=== PATIENT | female | born 1990 | race Asian ===

== ENCOUNTER 2022-08-21 11:52 | Inpatient (IN) ==
[2022-08-21] MEDS ORDERED: OXYTOCIN 30 UNITS/500 ML BAG IV PRN ×2 (16:37→21:54)
[2022-08-21] MEDS ORDERED: LIDOCAINE 1% LOCAL 20 ML VIAL INFIL PRN (16:37)
[2022-08-21] MEDS: LACTATED RINGER'S 1,000 ML IV PRN ×3 (17:05→22:18)
[2022-08-21 17:10] LABS: Hematocrit (blood only) 34.7 % (34.1-44.9); Hemoglobin 12.5 g/dl (12.0-16.0); Mean Corpuscular Hemoglobin 33.7 pg (25.0-34.0); Mean Corpuscular Volume 93.5 fL (80.0-100.0); Mean Platelet Volume 11.2 fL (9.4-12.3); Platelet Count 233 K/uL (130-400); RDW Coefficient of Variation 13.4 % (11.5-14.5); RDW Standard Deviation 45.4 fL (36.4-46.3); Red Blood Count 3.71 M/uL (3.93-5.22)
[2022-08-21] MEDS ORDERED: ePHEDrine sulfate 50 MG/ML AMP ONE (17:25)
[2022-08-21] MEDS ORDERED: fentaNYL citrate 100 MCG/2 ML VIAL ONE (17:26)
[2022-08-21] MEDS ORDERED: fentaNYL 2MCG/ML ROPIVACAINE 1.25MG/ML 100 ML BAG EPI ONE (17:27)
[2022-08-21] MEDS ORDERED: LIDOCAINE 2%/EPINEPHRINE 1:200,000 20 ML SDV ONE (17:27)
[2022-08-21] MEDS ORDERED: BUPIVACAINE 0.25% 30 ML VIAL ONE (17:27)
[2022-08-21] MEDS ORDERED: SODIUM CHLORIDE 0.9% INJ 10 ML VIAL ONE (17:27)
--- NOTE | 2022-08-21 19:15 | Anesthesiology Consultation ---
Date of Service August 21, 2022 Assessment & Plan Chart Review Chart Review: Acceptable Risk for Labor Epidural Consults Requested none History Height/Weight Height: 5 ft 2 in Weight: 65.771 kg Allergies Allergy/AdvReac Type Severity Reaction Status Date / Time No Known Allergies Allergy Verified 08/21/22 13:41 Medications Home Medications Medication Instructions Recorded Confirmed Last Taken prenat.vits,ollie,[id number] 1 tab PO DAILY #60 tabs 07/27/22 08/21/22 08/20/22 07:00 Active Medications Generic Name Dose Route Start Last Admin Trade Name Freq PRN Reason Stop Dose Admin Lactated Ringer's 1,000 mls @ 125 mls/hr 08/21/22 16:37 08/21/22 18:25 Lr IV 08/23/22 16:36 125 mls/hr .Q8H PRN Infusion L&D Protocol Protocol Past Medical History Medical History (Updated 08/21/22 @ 13:41 by Luciana Lewis RN) No known health problems Past Family History Family History Father Diabetes Past Surgical History Surgical History (Updated 08/21/22 @ 13:41 by Luciana Lewis RN) No history of previous surgery Social History Smoking Status: Never smoker Hx Alcohol Use: No Hx Substance Use: No substance use type: does not use Physical Exam Vital Signs Last Vital Signs Temp 36.8 C 08/21/22 15:45 Pulse 88 08/21/22 19:12 Resp 18 08/21/22 15:45 BP 103/69 08/21/22 19:12 Pulse Ox 97 08/21/22 19:08 Testing Laboratory Results 08/21/22 16:56
[2022-08-21] MEDS ORDERED: ONDANSETRON INJ 2 MG/ML 2 ML VIAL IV PRN (19:16)
[2022-08-21] MEDS ORDERED: ePHEDrine sulfate 50 MG/ML AMP IV PRN (19:16)
[2022-08-21] MEDS ORDERED: diphenhydrAMINE 50 MG/ML VIAL IV PRN (19:16)
[2022-08-21] MEDS ORDERED: PROMETHAZINE HCL 25 MG in SODIUM CHLORIDE 0.9% 50 ML IV PRN (19:16)
[2022-08-21] MEDS ORDERED: NALOXONE HCL 0.4 MG/1 ML VIAL/CARP IV PRN (19:16)
[2022-08-21] MEDS ORDERED: NALOXONE HCL 1 MG in SODIUM CHLORIDE 0.9% 1000ML 1,000 ML IV PRN (19:16)
[2022-08-21] MEDS ORDERED: NALBUPHINE HCL INJ 10 MG/ML AMP IV PRN (19:16)
[2022-08-22] MEDS: fentaNYL 2MCG/ML ROPIVACAINE 1.25MG/ML 100 ML BAG EPI PRN ×2 (03:01→10:33)
[2022-08-22] MEDS: LACTATED RINGER'S 1,000 ML IV PRN (04:55)
--- NOTE | 2022-08-22 08:09 | History & Physical Report ---
Date of Service August 22, 2022 Assessment & Plan (1) Supervision of normal intrauterine in primigravida: Plan: Admitted for labor requested epidural artificial rupture of membranes uncomplicated Pitocin required for augmentation patient is now fully dilated and will push shortly Admission and Anticipated Discharge Date Admission Date: August 21, 2022 History of Present Illness Primary Care Provider: NO PCP Visit JEREMY Calculator Estimated Delivery Date Method Current WG Current Estimate 08/21/22 LMP (Certain) 39w 2d LMP: 11/14/21 : 1 Full term: 0 Premature: 0 Total Number of Induced Abortions: 0 Total Number of Spontaneous Abortions: 0 Ectopics: 0 Multiple births: 0 Number of Living Children: 0 and Delivery Plans 33wk transfer from [place] Flu shot given 07/13/22 - [place] Allergies Allergy/AdvReac Type Severity Reaction Status Date / Time No Known Allergies Allergy Verified 08/21/22 13:41 Home Medications Medication Instructions Recorded Confirmed Type prenat.vits,ollie,kzp-pcbb-wqvpf 1 tab PO DAILY #60 tabs 07/27/22 08/21/22 Rx Patient History Medical History (Updated 08/21/22 @ 13:41 by Luciana Lewis RN) No known health problems Surgical History (Updated 08/21/22 @ 13:41 by Luciana Lewis RN) No history of previous surgery Family History Father Diabetes Social History Smoking Status: Never smoker Hx Alcohol Use: No Hx Substance Use: No Preferred Language: Mandarin Turkmen Communication Ability: Effective Communication Tools: [employer] Technician Required: Yes Beliefs That Will Affect Care: None marital status: marital status details: Luigi Louis (31) [phone] Current Living Situation: Spouse Current Living Situation Comment: lives with spouse, current occupational status: unemployed Other Information That Helps Us Care for You: No Feels Safe at Home: Yes Safety Concerns: Feels Safe At This Time Assistive Devices: Glasses Physical Exam Constitutional: WD/WN, vitals as above well developed and well nourished Respiratory: normal respiratory effort; no respiratory distress, no retractions and does not use accessory muscles Cardiovascular: RRR, no murmur, no edema Chest (Breasts): normal inspection/palpation of breasts Breast: normal inspection of breasts, normal inspection of axillae, normal palpation of breasts and normal palpation of axillae Gastrointestinal (Abdomen): normal bowel sounds, soft, nontender, no hepatosplenomegaly Neurologic: awake; not confused Results & Data ([facility]) Vital Signs (Past 12 Hours) Vital Signs Temp Pulse Resp BP Pulse Ox 08/22/22 07:21 99.9 F H 18 08/22/22 08:03 102 H 96 08/22/22 07:58 97 H 98 08/22/22 07:55 88 88/53 L 08/22/22 07:53 96 H 98 08/22/22 07:48 87 100 08/22/22 07:43 89 98 08/22/22 07:40 92 H 96/55 L 08/22/22 07:38 91 H 98 08/22/22 07:33 99 H 98 08/22/22 07:28 91 H 96 08/22/22 07:25 86 98/57 L 08/22/22 07:23 87 97 08/22/22 07:18 100 H 98 08/22/22 07:13 86 98 08/22/22 07:10 96 H 106/62 08/22/22 07:08 90 98 08/22/22 07:03 98 H 98 08/22/22 06:58 86 97 08/22/22 06:55 91 H 98/55 L 08/22/22 06:53 102 H 96 08/22/22 06:48 93 H 97 08/22/22 06:43 87 97 08/22/22 06:40 78 97/53 L 08/22/22 06:38 81 96 08/22/22 06:33 91 H 97 08/22/22 06:28 99 H 98 08/22/22 06:25 86 100/60 08/22/22 06:23 95 H 97 08/22/22 06:18 97 H 98 08/22/22 06:13 84 97 08/22/22 06:10 86 95/56 L 08/22/22 06:08 94 H 98 08/22/22 06:03 103 H 98 08/22/22 05:58 102 H 99 08/22/22 05:55 91 H 105/58 L 08/22/22 05:54 18 08/22/22 05:54 98.8 F 18 08/22/22 05:53 97 H 98 08/22/22 05:48 96 H 98 08/22/22 05:43 106 H 98 08/22/22 05:40 86 108/65 08/22/22 05:38 105 H 98 08/22/22 05:33 83 98 08/22/22 05:28 82 97 08/22/22 05:25 76 97/57 L 08/22/22 05:23 75 98 08/22/22 05:18 81 97 08/22/22 05:13 82 97 08/22/22 05:10 89 108/64 08/22/22 05:08 85 97 08/22/22 05:03 87 97 08/22/22 04:58 84 97 08/22/22 04:55 93 H 105/63 08/22/22 04:53 88 97 08/22/22 04:48 88 97 08/22/22 04:43 87 97 08/22/22 04:40 94 H 99/61 L 08/22/22 04:38 95 H 97 08/22/22 04:33 92 H 97 08/22/22 04:28 97 H 97 08/22/22 04:25 90 94/58 L 08/22/22 04:23 91 H 97 08/22/22 04:18 103 H 98 08/22/22 04:13 95 H 99 08/22/22 04:10 100 H 89/59 L 08/22/22 04:08 98 H 97 08/22/22 04:03 107 H 98 08/22/22 03:58 141 H 97 08/22/22 03:55 129 H 97/64 L 08/22/22 03:53 101 H 97 08/22/22 03:52 18 08/22/22 03:52 99.9 F H 18 08/22/22 03:48 106 H 96 08/22/22 03:43 98 H 97 08/22/22 03:41 110 H 102/53 L 08/22/22 03:38 103 H 96 08/22/22 03:33 108 H 97 08/22/22 03:28 102 H 97 08/22/22 03:25 96 H 103/61 08/22/22 03:23 115 H 97 08/22/22 03:18 95 H 96 08/22/22 03:13 91 H 98 08/22/22 03:11 108 H 102/67 08/22/22 03:08 100 H 98 08/22/22 03:03 99 H 97 08/22/22 02:58 95 H 97 08/22/22 02:55 115 H 105/68 08/22/22 02:53 98 H 98 08/22/22 02:48 96 H 97 08/22/22 02:43 97 H 99 08/22/22 02:40 95 H 118/70 08/22/22 02:38 100 H 99 08/22/22 02:33 109 H 98 08/22/22 02:28 100 H 98 08/22/22 02:25 91 H 117/67 08/22/22 02:23 118 H 99 08/22/22 02:18 108 H 99 08/22/22 02:13 100 H 98 08/22/22 02:10 112 H 105/69 08/22/22 02:08 101 H 98 08/22/22 02:04 18 08/22/22 02:04 98.2 F 18 08/22/22 02:03 119 H 99 08/22/22 01:58 107 H 99 08/22/22 01:55 83 102/62 08/22/22 01:53 92 H 98 08/22/22 01:48 84 97 08/22/22 01:43 95 H 97 08/22/22 01:40 92 H 91/54 L 08/22/22 01:38 89 97 08/22/22 01:33 89 96 08/22/22 01:28 93 H 97 08/22/22 01:25 86 90/56 L 08/22/22 01:23 89 97 08/22/22 01:18 89 98 08/22/22 01:13 102 H 97 08/22/22 01:11 82 88/54 L 08/22/22 01:08 89 97 08/22/22 01:03 92 H 98 08/22/22 00:58 85 98 08/22/22 00:56 83 106/59 L 08/22/22 00:53 99 H 98 08/22/22 00:48 85 98 08/22/22 00:43 84 98 08/22/22 00:41 84 105/62 08/22/22 00:38 108 H 98 08/22/22 00:33 87 97 08/22/22 00:28 97 H 98 08/22/22 00:26 80 102/61 08/22/22 00:23 96 H 98 08/22/22 00:18 110 H 98 08/22/22 00:13 98 H 98 08/22/22 00:11 82 102/62 08/22/22 00:08 89 98 08/22/22 00:03 97 H 97 08/22/22 00:01 18 08/22/22 00:01 98.2 F 18 08/21/22 23:58 78 97 08/21/22 23:55 95 H 97/60 L 08/21/22 23:53 79 97 08/21/22 23:48 86 97 08/21/22 23:43 76 98 08/21/22 23:40 88 105/60 08/21/22 23:38 99 H 98 08/21/22 23:33 80 97 08/21/22 23:28 85 98 08/21/22 23:26 85 113/69 08/21/22 23:23 89 96 08/21/22 23:18 100 H 98 08/21/22 23:13 84 97 08/21/22 23:11 75 102/61 08/21/22 23:08 92 H 98 08/21/22 23:03 98 H 98 08/21/22 22:58 85 100 08/21/22 22:56 82 100/62 08/21/22 22:53 91 H 98 08/21/22 22:48 75 98 08/21/22 22:43 79 97 17 22:15 18 08/21/22 22:15 99.0 F 18 08/21/22 22:40 72 94/54 L 17 22:38 79 97 17 22:33 77 98 08/21/22 22:28 77 96 08/21/22 22:26 94 H 100/61 08/21/22 22:23 88 97 17 22:18 110 H 99 17 22:13 93 H 99 08/21/22 22:10 100 H 83/53 L 08/21/22 22:08 87 97 08/21/22 22:03 102 H 98 08/21/22 21:58 82 98 08/21/22 21:53 95 H 99 08/21/22 21:48 102 H 99 08/21/22 21:43 91 H 98 08/21/22 21:40 84 95/51 L 08/21/22 21:38 112 H 99 08/21/22 21:33 99 H 99 08/21/22 21:28 91 H 98 08/21/22 21:25 115 H 89/53 L 08/21/22 21:23 97 H 98 08/21/22 21:18 87 98 08/21/22 21:13 100 H 98 08/21/22 21:10 117 H 88/54 L 08/21/22 21:08 107 H 99 08/21/22 21:03 110 H 97 08/21/22 20:58 85 100 08/21/22 20:55 95 H 91/53 L 08/21/22 20:53 117 H 99 08/21/22 20:48 113 H 99 08/21/22 20:43 87 99 08/21/22 20:40 108 H 86/54 L 08/21/22 20:38 92 H 99 08/21/22 20:33 85 99 08/21/22 20:28 88 100 08/21/22 20:26 115 H 94/47 L 08/21/22 20:23 96 H 98 08/21/22 20:18 125 H 99 08/21/22 20:13 103 H 97 08/21/22 20:11 116 H 105/51 L Code Status & VTE Plan VTE Prophylaxis Plan VTE Prophylaxis will be ordered: No Reason for no VTE drug order: Treatment not indicated Coding Level of Care Code None Diagnoses Supervision of normal intrauterine in primigravida Z34.00
--- NOTE | 2022-08-22 12:34 | Delivery Summary ---
Vaginal Delivery Summary Date of Service August 22, 2022 Vaginal Delivery Summary Spontaneous vaginal delivery the patient arrived in active labor received an epidural then artificial rupture of membranes and Pitocin for augmentation she delivered a baby after pushing for 3 hours in occiput anterior position fluid had thin meconium there was no nuchal cord mouth and nares were suctioned with bulb after delivery of the head and then gentle traction on the baby no excessive force live vigorous female cord clamped and cut cord blood obtained placenta removed with gentle traction IV Pitocin started uterine tone improved hemostasis improved second-degree tear repaired with 3-0 Vicryl sponge and instrument counts correct estimated blood loss 300 mL
[2022-08-22] MEDS ORDERED: HYDROCORTISONE ACETATE 25 MG SUPP PR PRN (12:39)
[2022-08-22] MEDS ORDERED: BENZOCAINE 20% AER SPR 82.5 GM CAN EXT PRN (12:39)
[2022-08-22] MEDS ORDERED: DIPHTHERIA/TETANUS/PERTUSSIS 0.5 ML SYR/VIAL IM ONE (12:39)
[2022-08-22] MEDS ORDERED: bisacodyL 10 MG SUPP PR PRN (12:39)
[2022-08-22] MEDS ORDERED: ACETAMINOPHEN 325 MG TAB PO PRN (12:39)
[2022-08-22] MEDS ORDERED: oxyCODONE/ACETAMINOPHEN 5mg/325mg TAB PO PRN (12:39)
--- NOTE | 2022-08-22 12:54 | Anesthesia Procedure Note ---
Date of Service August 22, 2022 Anesthesia Post Epidural Note Vital Signs Vital Signs: Temp Pulse Resp BP Pulse Ox 38.1 C H 118 H 18 99/55 L 97 08/22/22 12:00 08/22/22 12:40 08/22/22 07:21 08/22/22 12:40 08/22/22 12:21 Pain Intensity Abdomen: Pain Intensity: 3 Notes Pain: adequately controlled Airway Patency, RR, SpO2: stable & adequate BP & HR: stable & adequate Hydration State: stable & adequate Anesthetic Complications: no major complications apparent Epidural: Removed without complications, With tip intact and See Notes
[2022-08-22] MEDS: IBUPROFEN 600 MG TAB PO PRN (13:17)
[2022-08-22] MEDS: OXYTOCIN 30 UNITS/500 ML BAG IV PRN ×2 (15:19→16:15)
[2022-08-22] MEDS ORDERED: miSOPROStoL 200 MCG TAB PR SCH (15:39)
--- NOTE | 2022-08-22 15:43 | Obstetrical Progress Note ---
Date of Service August 22, 2022 Assessment & Plan Admission and Anticipated Discharge Date Admission Date: August 21, 2022 Subjective Asked to assess by nursing for heavier bleeding patient delivered around 12:17 PM she was doing fine and several hours later she had an increase in bleeding and then felt lightheaded and her blood pressure was low resuscitative measures were taken including starting IV Pitocin and a bolus IV fluid bolus and uterine massage I was at home and presented within 5 minutes and assessed the patient there was a slight trickle running the uterus feels firm I attempted to do a pelvic exam however the patient had had her epidural removed and from a pain point of view could not tolerate this 800 mcg of Cytotec was inserted into her rectum note noticed we used the chemical strength tester to to explain her process anesthesia is called we will get her more comfortable and then do an exam under anesthesia to see if there is anything causing the bleeding aside from uterine atony I if there is a laceration. Results & Data ([facility]) Vital Signs (Past 12 Hours) Vital Signs Temp Pulse Resp BP Pulse Ox 08/22/22 14:05 98.4 F 16 08/22/22 07:21 99.9 F H 18 08/22/22 15:41 101 H 99/59 L 08/22/22 15:36 96 H 106/65 08/22/22 15:32 87 98/59 L 08/22/22 15:31 84 91/53 L 08/22/22 15:29 87 94/51 L 08/22/22 15:20 121 H 76/55 L 08/22/22 15:15 110 H 71/48 L 08/22/22 15:10 116 H 70/39 L 08/22/22 15:00 129 H 90/49 L 08/22/22 14:55 130 H 78/50 L 08/22/22 14:53 131 H 83/52 L 08/22/22 14:25 126 H 93/54 L 08/22/22 13:56 131 H 68/44 L 08/22/22 13:25 125 H 70/47 L 08/22/22 13:10 129 H 63/39 L 08/22/22 12:55 146 H 84/51 L 08/22/22 12:40 118 H 99/55 L 08/22/22 12:25 139 H 112/52 L 08/22/22 12:21 137 H 97 12/18/22 12:19 108 H 121/61 08/22/22 12:16 105 H 96 08/22/22 12:17 106 H 92 08/22/22 12:11 86 L 08/22/22 12:11 108 H 08/22/22 12:11 111 H 90 08/22/22 12:06 98 H 97 08/22/22 12:05 102 H 83 L 08/22/22 12:00 100.6 F H 89 83 L 08/22/22 11:55 103 H 105/57 L 94 08/22/22 11:49 116 H 98 08/22/22 11:47 102 H 84 L 08/22/22 11:44 106 H 96 08/22/22 11:40 90 08/22/22 11:40 102 H 08/22/22 11:39 107 H 96 08/22/22 11:40 108 H 113/59 L 08/22/22 11:34 111 H 98 08/22/22 11:29 99 H 97 08/22/22 11:28 110 H 86 L 08/22/22 11:24 103 H 97 08/22/22 11:23 113 H 93 08/22/22 11:19 106 H 97 08/22/22 11:16 107 H 90 08/22/22 11:14 102 H 97 08/22/22 11:11 92 08/22/22 11:11 112 H 08/22/22 11:11 98 H 105/64 08/22/22 11:09 114 H 78 L 08/22/22 11:07 100.8 F H 08/22/22 11:04 191 H 89 L 08/22/22 10:59 103 H 77 L 08/22/22 10:54 116 H 98 08/22/22 10:49 105 H 99 08/22/22 10:46 113 H 89 L 08/22/22 10:44 130 H 100 08/22/22 10:39 112 H 98 08/22/22 10:34 98 08/22/22 10:34 114 H 08/22/22 10:34 93 H 92 08/22/22 10:29 93 H 99 08/22/22 10:28 92 H 89 L 08/22/22 10:24 84 98 08/22/22 10:23 93 H 88 L 08/22/22 10:19 103 H 98 1822 10:18 98 H 88 L 08/22/22 10:14 108 H 94 18 10:13 91 H 91 08/22/22 10:11 120 H 164/62 H 08/22/22 10:09 106 H 99 18 10:08 107 H 94 18 10:04 118 H 97 08/22/22 10:01 91 H 92 08/22/22 09:59 107 H 97 08/22/22 09:55 95 H 92 08/22/22 09:54 103 H 99 08/22/22 09:49 106 H 96 08/22/22 09:44 134 H 97 08/22/22 09:41 136 H 141/59 H 08/22/22 09:39 91 H 98 08/22/22 09:33 87 97 08/22/22 09:34 87 85 L 08/22/22 09:28 95 H 98 08/22/22 09:27 93 H 91 08/22/22 09:23 112 H 97 08/22/22 09:21 94 H 90 08/22/22 09:18 101 H 97 18 09:13 89 88 L 08/22/22 09:10 99.5 F 103 H 105/56 L 08/22/22 09:08 94 H 99 08/22/22 09:03 82 98 08/22/22 08:58 83 96 18 08:56 91 H 114/63 08/22/22 08:53 82 98 1822 08:48 80 96 1822 08:43 78 96 1822 08:41 81 95/61 L 22 08:38 94 H 97 18/22 08:33 80 96 18/22 08:28 84 96 1218/22 08:26 75 95/60 L 18/22 08:23 77 97 18/22 08:18 84 97 1822 08:13 78 97 1822 08:10 85 97/57 L 18/22 08:08 83 97 1822 08:03 102 H 96 18 07:58 97 H 98 08/22/22 07:55 88 88/53 L 08/22/22 07:53 96 H 98 08/22/22 07:48 87 100 08/22/22 07:43 89 98 08/22/22 07:40 92 H 96/55 L 08/22/22 07:38 91 H 98 08/22/22 07:33 99 H 98 08/22/22 07:28 91 H 96 08/22/22 07:25 86 98/57 L 08/22/22 07:23 87 97 08/22/22 07:18 100 H 98 08/22/22 07:13 86 98 08/22/22 07:10 96 H 106/62 08/22/22 07:08 90 98 08/22/22 07:03 98 H 98 08/22/22 06:58 86 97 08/22/22 06:55 91 H 98/55 L 08/22/22 06:53 102 H 96 08/22/22 06:48 93 H 97 08/22/22 06:43 87 97 08/22/22 06:40 78 97/53 L 08/22/22 06:38 81 96 08/22/22 06:33 91 H 97 08/22/22 06:28 99 H 98 08/22/22 06:25 86 100/60 08/22/22 06:23 95 H 97 08/22/22 06:18 97 H 98 08/22/22 06:13 84 97 08/22/22 06:10 86 95/56 L 08/22/22 06:08 94 H 98 08/22/22 06:03 103 H 98 08/22/22 05:58 102 H 99 08/22/22 05:55 91 H 105/58 L 08/22/22 05:54 18 08/22/22 05:54 98.8 F 18 08/22/22 05:53 97 H 98 08/22/22 05:48 96 H 98 08/22/22 05:43 106 H 98 08/22/22 05:40 86 108/65 08/22/22 05:38 105 H 98 08/22/22 05:33 83 98 18 05:28 82 97 18 05:25 76 97/57 L 08/22/22 05:23 75 98 08/22/22 05:18 81 97 08/22/22 05:13 82 97 08/22/22 05:10 89 108/64 08/22/22 05:08 85 97 08/22/22 05:03 87 97 08/22/22 04:58 84 97 08/22/22 04:55 93 H 105/63 08/22/22 04:53 88 97 08/22/22 04:48 88 97 08/22/22 04:43 87 97 08/22/22 04:40 94 H 99/61 L 08/22/22 04:38 95 H 97 08/22/22 04:33 92 H 97 08/22/22 04:28 97 H 97 08/22/22 04:25 90 94/58 L 08/22/22 04:23 91 H 97 08/22/22 04:18 103 H 98 08/22/22 04:13 95 H 99 08/22/22 04:10 100 H 89/59 L 08/22/22 04:08 98 H 97 08/22/22 04:03 107 H 98 08/22/22 03:58 141 H 97 08/22/22 03:55 129 H 97/64 L 08/22/22 03:53 101 H 97 08/22/22 03:52 18 08/22/22 03:52 99.9 F H 18 08/22/22 03:48 106 H 96 08/22/22 03:43 98 H 97 PG Care Time/CCT Total # of Minutes Spent Total Time Spent with Patient: Total time spent is greater than 50% in coordination of care (as documented) at patient's floor/unit and/or counseling patient: Coding Level of Care Code None
[2022-08-22 16:21] LABS: Hematocrit (blood only) 23.9 % (34.1-44.9); Hemoglobin 8.4 g/dl (12.0-16.0); Mean Corpuscular Hemoglobin 33.7 pg (25.0-34.0); Mean Corpuscular Hgb Conc 35.1 g/dL (32.0-36.0); Mean Platelet Volume 10.4 fL (9.4-12.3); Platelet Count 151 K/uL (130-400); RDW Coefficient of Variation 13.3 % (11.5-14.5); RDW Standard Deviation 46.9 fL (36.4-46.3); Red Blood Count 2.49 M/uL (3.93-5.22); White Blood Count 20.12 K/ul (4.8-10.8)
[2022-08-22 16:25] LABS: Partial Thromboplastin Ratio 1.1; Partial Thromboplastin Time 31.6 Seconds (21.0-31.0); Prothrombin Time 10.9 Seconds (9.0-12.0)
[2022-08-22] MEDS ORDERED: miSOPROStoL 200 MCG TAB PO SCH (17:00)
[2022-08-22] MEDS: DOCUSATE SODIUM 100 MG CAP PO SCH (22:47)
--- NOTE | 2022-08-23 05:46 | Obstetrical Progress Note ---
Date of Service August 23, 2022 Assessment & Plan (1) care following vaginal delivery: Plan Patient is a 32 y/o female who is PPD #1 following delivery at 40 1/7. - Overall, feeling well and eating well today - breast feeding, mother notes concern about supply, no breast pain - Voiding via Hair and passing gas appropriately - No ambulation d/t Hair (per patient), anticipate removal today - Pain controlled w/ Ibuprofen + Tylenol - Hgb 8.4 on 08/22 - Vitals stable, BP 101/50 w/ P 78, afebrile - Vaginal bleeding decreasing (per patient and nursing) - Continue to advance routine PP care - Anticipate discharge @ 48+ hours PP - Recommending f/u outpatient in 6 weeks Admission and Anticipated Discharge Date Admission Date: August 21, 2022 Supervising Physician Co-Signing Physician Notes Resident Physician Supervision Note: I was present with Dr. Beard during the history and exam. I discussed the case with the resident and agree with the findings and plan as documented in the note. Any exceptions or clarifications are listed here: [None] Documented By: Toño Bowens MD, FACOG Subjective Patient is a 32 y/o female who is PPD #1 following delivery at 40 1/7. Patient was managed for PPH 08/22 and had blood loss of 350ccs, received Pitocin. She reports feeling well overall this morning. - Ambulation - has not yet ambulated - Voiding/Hair - Hair catheter in place, no dysuria or pressure - Gas/Stool - passing gas, no bowel movement - Diet - regular, no nausea or emesis - Lochia - diminishing, heavier than normal period (nursing notes bleeding to be stable and decreasing) - Infant Feeding Type - breast feeding - Pain Level - 2/10, controlled with Ibuprofen + Tylenol Review of Systems - Denies fever, chills, sweats - Denies shortness of breath, difficulty breathing, chest pain, palpitations, chest pressure. - Denies breast pain. - Denies dysuria. - Denies headache or changes in vision. Physical Exam Physical Exam: General: Alert, oriented. No acute distress. Cardiac: RRR, normal S1/S2, no murmurs/rubs/gallops. Respiratory: Non-labored, CTAB, no wheezes/rales/rhonchi. Symmetric chest rise. Abdomen: Soft, nontender, nondistended. Bowel sounds present. Uterus: Uterine fundus firm, palpable 1 cm below umbilicus. Urinary: Hair catheter intact, no hematuria, urine clear yellow Lower Extremities: No lower extremity edema or swelling. No deep calf pain. Luis M's negative bilaterally. Results & Data ([facility]) Vital Signs (Past 12 Hours) Vital Signs Temp Pulse Pulse Resp BP BP Pulse Ox 08/23/22 03:25 36.5 C 78 16 101/50 L 99 08/22/22 23:40 37.1 C 98 H 16 93/55 L 99 08/22/22 19:00 08/22/22 19:00 36.4 C L 99 H 16 98/60 L 99 08/23/22 03:23 78 101/50 L 08/23/22 03:18 94 H 99 08/23/22 03:13 82 100 08/23/22 03:08 86 99 08/23/22 03:03 89 100 08/23/22 02:58 83 100 08/23/22 02:53 86 100 08/23/22 02:48 107 H 100 08/23/22 02:43 112 H 99 08/23/22 02:38 80 98 08/23/22 02:33 93 H 98 08/23/22 02:28 80 98 08/23/22 02:23 80 99 08/23/22 02:18 81 99 08/23/22 02:13 78 99 08/23/22 02:08 76 99 08/23/22 02:03 79 99 08/23/22 01:58 84 99 08/23/22 01:53 85 98 08/23/22 01:48 83 99 08/23/22 01:43 80 99 08/23/22 01:38 83 98 08/23/22 01:33 80 98 08/23/22 01:31 100 H 87/50 L 08/23/22 01:28 90 97 08/23/22 01:23 91 H 96 08/23/22 01:18 89 96 08/23/22 01:13 91 H 97 08/23/22 01:08 85 97 08/23/22 01:03 85 98 08/23/22 00:58 92 H 98 08/23/22 00:53 92 H 98 08/23/22 00:48 90 98 08/23/22 00:43 88 97 08/23/22 00:38 83 99 08/23/22 00:33 86 97 08/23/22 00:28 88 98 08/23/22 00:23 82 97 08/23/22 00:18 85 100 08/23/22 00:13 90 100 08/23/22 00:08 88 99 08/23/22 00:03 87 99 1822 23:58 90 100 1822 23:53 84 99 18/22 23:49 81 93/55 L 08/22/22 23:48 98 H 99 1822 23:41 100 H 97 1822 23:36 99 H 99 1822 23:31 84 98 18/22 23:26 84 99 1822 23:21 85 98 1822 23:16 85 98 1822 23:11 87 98 1822 23:06 87 99 1822 23:01 87 99 18/22 22:56 82 99 18/22 22:51 85 99 18/22 22:46 89 98 18/22 22:41 98 H 100 18/22 22:36 86 100 18/22 22:31 95 H 100 18/22 22:26 93 H 100 18/22 22:21 98 H 100 18/22 22:16 97 H 95/50 L 100 18/22 22:11 98 H 100 1218/22 22:06 104 H 100 1218/22 22:01 103 H 99 1218/22 21:56 107 H 100 1218/22 21:51 109 H 99 1218/22 21:46 115 H 98 1218/22 21:41 96 H 100 1218/22 21:36 94 H 100 1218/22 21:31 106 H 99 1218/22 21:26 102 H 100 1218/22 21:21 98 H 99 1218/22 21:16 119 H 99 12/18/22 21:11 117 H 98 1218/22 21:06 112 H 98 1218/22 21:01 95 H 98 1218/22 20:56 109 H 98 1822 20:51 107 H 98 1822 20:46 108 H 100 18 20:41 100 H 99 18 20:36 111 H 98 18 20:31 107 H 98 18 20:26 100 H 99 1822 20:21 110 H 98 18 20:16 93 H 99 18 20:15 98 H 105/60 18 20:11 103 H 99 18 20:06 95 H 99 18 20:04 96 H 108/63 08/22/22 20:01 88 99 08/22/22 19:56 94 H 98 08/22/22 19:51 93 H 99 08/22/22 19:49 94 H 92/66 L 08/22/22 19:46 105 H 99 08/22/22 19:41 99 H 98 08/22/22 19:36 104 H 99 08/22/22 19:34 117 H 96/61 L 08/22/22 19:31 101 H 100 18 19:26 111 H 99 1822 19:21 101 H 98 18 19:19 110 H 101/58 L 08/22/22 19:08 116 H 98/60 L 08/22/22 19:01 116 H 89/57 L 08/22/22 18:57 121 H 95/56 L 08/22/22 18:54 121 H 107/65 08/22/22 18:49 122 H 105/56 L 08/22/22 18:47 120 H 114/65 1822 18:21 94 H 108/54 L 08/22/22 18:06 109 H 132/64 08/22/22 17:57 99 H 107/53 L O2 Del Method 08/23/22 03:25 Room Air 08/22/22 23:40 Room Air 08/22/22 19:00 Room Air 08/22/22 19:00 Room Air 08/23/22 03:23 08/23/22 03:18 08/23/22 03:13 08/23/22 03:08 08/23/22 03:03 08/23/22 02:58 08/23/22 02:53 08/23/22 02:48 08/23/22 02:43 08/23/22 02:38 08/23/22 02:33 08/23/22 02:28 08/23/22 02:23 08/23/22 02:18 08/23/22 02:13 08/23/22 02:08 08/23/22 02:03 08/23/22 01:58 08/23/22 01:53 08/23/22 01:48 08/23/22 01:43 08/23/22 01:38 08/23/22 01:33 08/23/22 01:31 08/23/22 01:28 08/23/22 01:23 08/23/22 01:18 08/23/22 01:13 08/23/22 01:08 08/23/22 01:03 08/23/22 00:58 08/23/22 00:53 08/23/22 00:48 08/23/22 00:43 08/23/22 00:38 08/23/22 00:33 08/23/22 00:28 08/23/22 00:23 08/23/22 00:18 08/23/22 00:13 08/23/22 00:08 08/23/22 00:03 08/22/22 23:58 08/22/22 23:53 08/22/22 23:49 08/22/22 23:48 08/22/22 23:41 08/22/22 23:36 08/22/22 23:31 08/22/22 23:26 08/22/22 23:21 08/22/22 23:16 08/22/22 23:11 08/22/22 23:06 08/22/22 23:01 08/22/22 22:56 08/22/22 22:51 08/22/22 22:46 08/22/22 22:41 08/22/22 22:36 08/22/22 22:31 08/22/22 22:26 08/22/22 22:21 08/22/22 22:16 08/22/22 22:11 08/22/22 22:06 08/22/22 22:01 08/22/22 21:56 08/22/22 21:51 08/22/22 21:46 08/22/22 21:41 08/22/22 21:36 08/22/22 21:31 08/22/22 21:26 08/22/22 21:21 08/22/22 21:16 08/22/22 21:11 08/22/22 21:06 08/22/22 21:01 08/22/22 20:56 08/22/22 20:51 08/22/22 20:46 08/22/22 20:41 08/22/22 20:36 08/22/22 20:31 08/22/22 20:26 08/22/22 20:21 08/22/22 20:16 08/22/22 20:15 08/22/22 20:11 08/22/22 20:06 08/22/22 20:04 08/22/22 20:01 08/22/22 19:56 08/22/22 19:51 08/22/22 19:49 08/22/22 19:46 08/22/22 19:41 08/22/22 19:36 08/22/22 19:34 08/22/22 19:31 08/22/22 19:26 08/22/22 19:21 08/22/22 19:19 08/22/22 19:08 08/22/22 19:01 08/22/22 18:57 08/22/22 18:54 08/22/22 18:49 08/22/22 18:47 08/22/22 18:21 08/22/22 18:06 08/22/22 17:57 Resident Activity Tracking Resident Involvement: Resident Care Provided Care Provided: OB Delivery
[2022-08-23 06:55] LABS: Hematocrit (blood only) 18.7 % (34.1-44.9); Hemoglobin 6.6 g/dl (12.0-16.0); Mean Corpuscular Hemoglobin 33.8 pg (25.0-34.0); Mean Corpuscular Hgb Conc 35.3 g/dL (32.0-36.0); Mean Corpuscular Volume 95.9 fL (80.0-100.0); Mean Platelet Volume 10.5 fL (9.4-12.3); Platelet Count 130 K/uL (130-400); RDW Coefficient of Variation 13.6 % (11.5-14.5); Red Blood Count 1.95 M/uL (3.93-5.22); White Blood Count 13.37 K/ul (4.8-10.8)
[2022-08-23] MEDS: PRENATAL VITAMIN 1 TAB PO SCH (08:11)
[2022-08-23] MEDS: DOCUSATE SODIUM 100 MG CAP PO SCH ×2 (08:11→19:55)
[2022-08-23] MEDS ORDERED: SODIUM CHLORIDE 0.9% 250 ML IV PRN ×2 (09:15→19:37)
[2022-08-23] MEDS: IBUPROFEN 600 MG TAB PO PRN ×2 (12:16→19:55)
--- NOTE | 2022-08-23 16:00 | Obstetrical Progress Note ---
Date of Service August 23, 2022 Assessment & Plan Admission and Anticipated Discharge Date Admission Date: August 21, 2022 Subjective Patient's Hgb this morning 6.6. Pulse low 100s. Feeling weak/dizzy when getting up to ambulate today. We discussed blood transfusion - would recommend 2u PRBC. We discussed consent with [facility] securities underwriter. Reviewed benefits of decreased dizziness, improved healing, able to get back to normal activities faster. Risks - very low chance of infection, chance of transfusion or allergic reaction. She and would like to think about this - they will let us know if she'd like to receive the transfusion. Results & Data ([facility]) Vital Signs (Past 12 Hours) Vital Signs Temp Pulse Pulse Resp BP BP Pulse Ox 08/23/22 12:05 36.4 C L 101 H 18 98/58 L 98 08/23/22 10:15 36.4 C L 106 H 18 100/63 99 08/23/22 07:30 36.8 C 20 08/23/22 07:26 82 96/51 L O2 Del Method 08/23/22 12:05 Room Air 08/23/22 10:15 Room Air 08/23/22 07:30 Room Air 08/23/22 07:26 PG Care Time/CCT Total # of Minutes Spent Total Time Spent with Patient: Total time spent is greater than 50% in coordination of care (as documented) at patient's floor/unit and/or counseling patient: Coding Level of Care Code None
[2022-08-23] MEDS ORDERED: bisacodyL 5 MG TABEC PO SCH (20:00)
--- NOTE | 2022-08-24 05:19 | Obstetrical Progress Note ---
Date of Service August 24, 2022 Assessment & Plan (1) care following vaginal delivery: Plan Patient is a 32 y/o female who is PPD #2 following delivery at 40 1. - Overall, feeling well and eating well today, lightheadedness w/ ambulation resolved post-PRBC x 2 - bottle feeding, arranged consultation prior to d/c - Urinating independently and passing gas appropriately - Pain controlled w/ Ibuprofen - Hgb 08/24 pending - Vitals stable, BP 92/62 w/ P 87, afebrile - Vaginal bleeding decreasing (per patient and nursing) - Continue to advance routine PP care - Anticipate discharge today - Recommending f/u outpatient in 6 weeks Admission and Anticipated Discharge Date Admission Date: August 21, 2022 Supervising Physician Co-Signing Physician Notes Resident Physician Supervision Note: I was present with Dr. Beard during the history and exam. I discussed the case with the resident and agree with the findings and plan as documented in the note. Any exceptions or clarifications are listed here: PPD#2 doing well. Much symptomatic improvement after transfusion. Still waiting on this morning's lab results. Anticipate DC home later today. Documented By: Martine Daugherty, DO Subjective Patient is a 32 y/o female who is PPD #2 following delivery at 40 09/11. Patient was managed for PPH 08/22-08/23 and had blood loss of 700ccs, received Pitocin and 2 U PRBC. She reports feeling better this morning. - Ambulation - ambulating well throughout room - Voiding/Hair - independent voids, no dysuria or pressure - Gas/Stool - passing gas, no bowel movement - Diet - regular, no nausea or emesis - Lochia - diminishing, light w/ clots (smaller than fist) - Infant Feeding Type - bottle feeding feeding, plans to continue to attempt breast feeding - Pain Level - 4/10, controlled with Ibuprofen Review of Systems - Denies fever, chills, sweats - Denies shortness of breath, difficulty breathing, chest pain, palpitations, chest pressure. - Denies breast pain. - Denies dysuria. - Denies headache or changes in vision. Physical Exam Physical Exam: General: Alert, oriented. No acute distress. Cardiac: RRR, normal S1/S2, no murmurs/rubs/gallops. Respiratory: Non-labored, CTAB, no wheezes/rales/rhonchi. Symmetric chest rise. Abdomen: Soft, nontender, nondistended. Bowel sounds present. Uterus: Uterine fundus firm, palpable 2 cm below umbilicus. Lower Extremities: No lower extremity edema or swelling. No deep calf pain. Luis M's negative bilaterally. Results & Data ([facility]) Vital Signs (Past 12 Hours) Vital Signs Temp Pulse Pulse Resp BP BP Pulse Ox 08/24/22 00:13 36.4 C L 81 16 95/61 L 99 08/23/22 23:54 36.5 C 85 16 95/60 L 99 08/23/22 23:20 36.8 C 89 16 105/74 99 08/24/22 01:55 36.8 C 87 16 92/62 L 08/24/22 00:55 36.4 C L 89 16 96/63 L 99 08/24/22 00:25 36.7 C 100 H 16 96/61 L 98 08/23/22 23:19 36.8 C 89 16 105/74 99 08/23/22 22:20 37.0 C 95 H 16 99/66 L 99 08/23/22 21:20 36.7 C 108 H 16 100/68 98 08/23/22 20:50 37.0 C 99 H 16 107/67 99 08/23/22 20:34 36.6 C 99 H 16 100/67 99 08/23/22 20:19 36.9 C 98 H 16 96/66 L 98 08/23/22 19:50 36.6 C 109 H 16 95/64 L 98 O2 Del Method 08/24/22 00:13 08/23/22 23:54 08/23/22 23:20 Room Air 08/24/22 01:55 08/24/22 00:55 08/24/22 00:25 08/23/22 23:19 08/23/22 22:20 08/23/22 21:20 08/23/22 20:50 08/23/22 20:34 08/23/22 20:19 08/23/22 19:50 Room Air Resident Activity Tracking Resident Involvement: Resident Care Provided Care Provided: OB Delivery
[2022-08-24] MEDS: IBUPROFEN 600 MG TAB PO PRN (07:35)
[2022-08-24] MEDS: DOCUSATE SODIUM 100 MG CAP PO SCH (07:35)
[2022-08-24] MEDS: PRENATAL VITAMIN 1 TAB PO SCH (07:35)
[2022-08-24 08:12] LABS: Hematocrit (blood only) 28.9 % (34.1-44.9); Hemoglobin 10.1 g/dl (12.0-16.0)
--- NOTE | 2022-09-01 15:47 | Coding Query ---
ANEMIA To promote full compliance with coding requirements relating to patient care, physician participation is requested in all cases of checkerer hand uncertainty. Please assist us with the question(s) below: Coding Question(s): The record reflects the following clinical findings: Patient was managed for PPH 08/22-08/23 and had blood loss of 700ccs, received Pitocin and 2 U PRBC. If these findings are indicative of anemia, please specify the known or suspected type by placing an "X" within the parenthesis (x). If other, please document type. Examples are: ( X) Acute blood loss anemia ( ) Acute Postoperative blood loss anemia ( ) Acute postoperative anemia due to dilutional fluids ( ) Chronic blood loss anemia ( ) Iron deficient anemia ( ) Anemia, unspecified or other ( ) Other: (please specify) ( ) Unable to determine Thank you for your time, NOREEN Bucio, [facility]
--- NOTE | 2022-09-01 15:52 | Coding Query ---
CODING QUERY To promote full compliance with coding requirements relating to patient care, provider participation is requested in all cases of hearing impaired itinerant teacher uncertainty. Please assist us with the question(s) below: Coding Question(s): Progress note on 08/22 1542 indicates the following: " (We will) do an exam under anesthesia to see if there is anything causing the bleeding aside from uterine atony I if there is a laceration. Please document if and how this inspection procedure was performed and the findings, if any. Physician's Response(s): we prepared for this but exam was NOT performed under anesthesia Thank you for your time, NOREEN Bucio, [facility]
== END 2022-08-24 15:55 | disposition home or self-care (01) | DRG 806 ==
LOC: OPB 11:52 → 4S1 11:53 → 4E2 08-23 10:10
DX: D62 Acute posthemorrhagic anemia; O77.0 Labor and delivery complicated by meconium in amniotic fluid; O90.81 Anemia of the puerperium; O72.2 Delayed and secondary postpartum hemorrhage; O48.0 Post-term pregnancy; Z37.0 Single live birth; Z3A.40 40 weeks gestation of pregnancy; O70.1 Second degree perineal laceration during delivery; Z20.822 Contact with and (suspected) exposure to COVID-19